=== PATIENT | male | born 1955 | race Caucasian/White ===

== ENCOUNTER 2016-08-08 20:07 | Emergency (ER) | payer OTHER ==
[~2016-08-08] VITALS: Ht 180.3 cm; Wt 103.0 kg
[~2016-08-08 20:07] MED LIST: NAPR500 PO; ROBA750T3 PO; TRAM50 PO
[2016-08-08 20:20] VITALS: BP 167/106; PULSE 78; RESP 18; TEMP 98.8; O2SAT 94
[2016-08-08 20:30] VITALS: BP 167/106; PULSE 78; RESP 18; TEMP 98.8; O2SAT 95
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
[2016-08-08] MEDS ORDERED: ORPHENADRINE INJ 60 MG/2 ML AMP IM ONE (21:00)
[2016-08-08] MEDS ORDERED: MORPHINE SULFATE 4 MG/ML INJ IM ONE (21:00)
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
[2016-08-08] MEDS ORDERED: TRAM50TA PO (22:19)
[2016-08-08] MEDS ORDERED: ORPH100T99 PO (22:19)
[2016-08-08] MEDS ORDERED: IBUP-232 PO (22:19)
[2016-08-08 22:39] VITALS: BP 172/96
== END 2016-08-08 22:40 | disposition home or self-care (01) ==
LOC: PHEFT 20:07
DX: S16.1XXA Strain of muscle, fascia and tendon at neck level, initial encounter (principal); I10 Essential (primary) hypertension; Z87.442 Personal history of urinary calculi; V43.52XA Car driver injured in collision with other type car in traffic accident, initial encounter; Y93.9 Activity, unspecified; Y92.9 Unspecified place or not applicable; Y99.9 Unspecified external cause status
CPT/HCPCS: 70450; 72125; 96372; 99284; J2270; J2360